=== PATIENT | male | born 1955 | race Caucasian/White ===

== ENCOUNTER 2018-08-26 12:02 | Emergency (ER) | payer OTHER ==
[2018-08-26 12:07] VITALS: BP 160/106
--- NOTE | 2018-08-26 13:23 | EDPHY ---
General Time Seen by Provider: 08/26/18 13:16 Narrative: CHIEF COMPLAINT: Chainsaw laceration HISTORY OF PRESENT ILLNESS: Patient presents by private vehicle with his spouse with complaints of left thigh chainsaw laceration. He states that he was cutting a tree just prior to arrival approximately 11:00 a.m. When he accidentally cut into his left thigh. He was not wearing any protective devices, which he normally does. He reports severe pain at 1st that has improved to minimal now. Moderate bleeding that stopped with pressure. No pulsatile bleeding. No injury elsewhere. Able to ambulate. Worse when doing so. Improved at rest. Does not radiate. No numbness, tingling, cyanosis or pallor distally. Tetanus up-to-date less than 5 years. TIME OF INJURY: 11:00 a.m. Today TETANUS STATUS: Less than 5 years MEDICAL/SURGICAL/SOCIAL HISTORY: Uncomp at an outside hospital. licated. No surgical history. Lives independently with his spouse. 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 Good signs of perfusion to the left lower extremity. No pulsatile bleeding from the wound. Neurological: A&O, light sensory symmetric, ankle and great toe strength symmetric. Normal proprioception of the great toe. Skin: Warm and dry, no rash. 20 cm laceration left anterior thigh that is partial thickness. There is no involvement of the quadriceps muscle. No foreign body. No pulsatile bleeding. Neuro intact distally. Extremities: Tenderness over the area of left thigh laceration. Range of motion is intact. There is no evidence of compartment syndrome. No evidence of arterial injury with good signs of perfusion distally. DIFFERENTIAL DIAGNOSES: Including but not limited to laceration, laceration with tendon injury, laceration with complication MDM: 1:15 p.m. Complex left thigh laceration from a chain saw injury just prior to arrival. This is a partial thickness injury down to but not including the anterior compartment including the quadriceps. Range of motion is fully intact. He has CMS intact distally. His tetanus is up-to-date. I have administered extensive lidocaine within limits. We will copiously irrigate and I will close the wound. No indication for x-ray. 2:50 p.m. Complex laceration of the left anterior thigh that required nearly 60 min of suture repair. This was 2 layers of tissue but 3 layers of suture material. This was done with excellent approximation wound borders. Tolerated well. Given the depth of the wound, I will place him on Keflex for prophylaxis. I did recommend crutches for the 1st 3-7 days to reduce stress on the suture line. We discussed returning here in 14 days for suture removal. We discussed ED precautions for signs of infection. Short course of pain medication as needed. Ice and elevation. 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 I have answered all his questions. He is discharged home well-appearing stable condition, neurovascular intact distally. PROCEDURE: Laceration repair Consent: Verbal Location: Left anterior thigh Length of repair: 20 cm Complexity: Complex Layer involvement: 3 layer Anesthesia: Local. 0.5% Marcaine with epinephrine, 20 mL Irrigation: Extensive Debridement: 5 cm excisional debridement Procedure description: Following good anesthesia, the wound was copiously irrigated. Wound bed was explored with a sterile glove, and there is no foreign body noted. I did perform 5 cm of excisional debridement superficially. Wound borders were approximated well with good hemostasis. Tolerated well without complication. Suture/Staple material: Subcutaneous layer: 4-0 Vicryl 30 [id number] sutures over 2 layers. Cutaneous layer: 12 horizontal mattress sutures Wound care: Routine as discussed Suture/Staple removal: 14 Days SUPERVISION: ED Precautions: Worsening pain. Erythema, edema, cyanosis, pallor, paresthesia or anesthesia. - History Smoking Status: Current every day smoker - Objective Vital Signs: Initial Vital Signs Temperature (C) 97.9 F 08/26/18 12:03 Heart Rate 100 08/26/18 12:03 Respiratory Rate 18 08/26/18 12:03 Blood Pressure 160/106 H 08/26/18 12:03 O2 Sat (%) 95 08/26/18 12:03 O2 Delivery Mode Room Air Allergies/Adverse Reactions: No Known Allergies Allergy (Unverified 08/26/18 12:06) Home Medications: Medication Instructions Recorded Cephalexin [Keflex (*)] 500 mg PO QID #40 cap 08/26/18 oxyCODONE HCL/ACETAMINOPHEN 1 each PO Q4-6PRN PRN #7 tablet 08/26/18 [Percocet 5-325 mg Tablet] Departure - Departure Disposition: Home, Routine, Self-Care Clinical Impression: Laceration of thigh, left, complicated Qualifiers: Encounter type: initial encounter Qualified Code(s): S71.112A - Laceration without foreign body, left thigh, initial encounter Condition: Good Instructions: Care For Your Stitches (ED), Laceration (ED) Additional Instructions: 1. Thin layer of bacitracin once daily for the next 2-3 days 2. Keep the wound covered while showering for the next 3 days 3. Daily wound care as discussed 4. Return here for suture removal in 10-14 days 5. Return here for signs of infection as discussed including warmth, redness, fever, drainage from the site 6. return here for increasing pain surrounding the laceration 7. Do not submerge the wound in any water, hot tub, swimming pool until sutures removed Referrals: Renard Bradley DO [Medical Doctor] - As per Instructions Physician,Emergency Dept, [Medical Doctor] - As per Instructions (Fourteen days for suture removal) Prescriptions: Cephalexin [Keflex (*)] 500 mg PO QID #40 cap oxyCODONE HCL/ACETAMINOPHEN [Percocet 5-325 mg Tablet] 1 each PO Q4-6PRN PRN #7 tablet PRN Reason: Pain, Breakthrough
== END 2018-08-26 15:20 | disposition home or self-care (01) ==
PROC: 0HQJXZZ Repair Left Upper Leg Skin, External Approach (ICD-10-PCS; principal; 2018-08-26)
DX: S71.112A Laceration without foreign body, left thigh, initial encounter (principal); W31.2XXA Contact with powered woodworking and forming machines, initial encounter; Y93.H2 Activity, gardening and landscaping; Y92.007 Garden or yard of unspecified non-institutional (private) residence as the place of occurrence of the external cause; F17.200 Nicotine dependence, unspecified, uncomplicated